=== PATIENT | male | born 1955 | race Caucasian/White ===

== ENCOUNTER 2017-02-16 20:36 | Emergency (ER) | payer BC ==
--- NOTE | 2017-02-16 22:42 | DIAGNOSTIC IMAGING REPORT ---
PROCEDURE: XR TIBIA AND FIBULA - LEFT INDICATION: TRAUMA/INJURY TECHNIQUE: AP and lateral views. COMPARISON: None. FINDINGS: Mild degenerative spurring at the tibial tuberosity. Osseous structures are otherwise normal. IMPRESSION: 1. Negative left tibia and fibula.
--- NOTE | 2017-02-16 22:43 | DIAGNOSTIC IMAGING REPORT ---
PROCEDURE: XR LUMBAR SPINE 2 OR 3 VIEWS INDICATION: TRAUMA/INJURY TECHNIQUE: Three views. COMPARISON: None. FINDINGS: Mild to moderate degenerative changes of the lower lumbar facet joints. Osseous structures and disc spaces are otherwise normal. No evidence of an acute process or fracture. IMPRESSION: 1. Mild to moderate degenerative changes. 2. Otherwise negative lumbar spine.
--- NOTE | 2017-02-16 22:44 | DIAGNOSTIC IMAGING REPORT ---
PROCEDURE: XR CERVICAL SPINE 2 OR 3 VIEW INDICATION: NECK TRAUMA/INJURY TECHNIQUE: Three views. COMPARISON: None. FINDINGS: Mild levoscoliosis with moderate to marked degenerative changes (multilevel disc space narrowing and moderate facet disease). No evidence of an acute process or fracture. IMPRESSION: 1. Mild levoscoliosis which may be a reflection of degenerative changes or cervical spasm. 2. Moderate to marked degenerative changes. 3. Otherwise negative cervical spine. No evidence of acute process or fracture
--- NOTE | 2017-02-16 23:10 | ED ORDER SUMMARY ---
..... Patient: MARGARITA ALVARES OrderSheet [facility] VisitID: [id number] [address] [place] [address] 61y, M Registration Date/Time: 02/16/2017 ORDER SHEET Weight: 90.7 kg (stated) Allergies: No Known Drug Allergy GENERAL ORDERS: Cervical Spine 2 or 3V Urgent (21:13 02/16/2017 HBivens A.R.N.P.) (Ack 21:16 CHagerty ER Locomotive Crane Engineer) (21:38 RFay) Lumbar Spine 2 or 3V Urgent (21:13 02/16/2017 HBivens A.R.N.P.) (Ack 21:16 CHagerty ER Locomotive Crane Engineer) (21:38 RFay) Tibia/Fibula Left Urgent (21:13 02/16/2017 HBivens A.R.N.P.) (Ack 21:16 CHagerty ER Locomotive Crane Engineer) (21:38 RFay) Dress Wounds (21:13 02/16/2017 HBivens A.R.N.P.) (Ack 21:24 MWinterer R.N.) (22:07 JQuivey R.N.) MEDICATION ORDERS: Toradol IM 60 mg (NOW) (21:13 02/16/2017 HBivens A.R.N.P.) (Ack 21:23 MWinterer R.N.) (21:46 MWinterer R.N.) Tramadol PO 50 mg (NOW) (23:18 02/16/2017 MWinterer R.N. verbal order read back to HBivens A.R.N.P.) (23:19 MWinterer R.N.) IV FLUIDS: ORDER SHEET NOTES: [Electronically signed by Darlin Zambrano R.N. (23:23 02/16/2017)] [Electronically signed by Myriam Mackay.R.N.P. (23:51 02/16/2017)] [Electronically locked/signed by Darlin Zambrano R.N. (23:23 02/16/2017)]
--- NOTE | 2017-02-16 23:10 | ED ORDER SUMMARY ---
..... Patient: MARGRAITA ALVARES OrderSheet [facility] VisitID: [id number] [address] [place] [address] 61y, M Registration Date/Time: 02/16/2017 ORDER SHEET Weight: 90.7 kg (stated) Allergies: No Known Drug Allergy GENERAL ORDERS: Cervical Spine 2 or 3V Urgent (21:13 02/16/2017 HBivens A.R.N.P.) (Ack 21:16 CHagerty ER Archives Specialist) (21:38 RFay) Lumbar Spine 2 or 3V Urgent (21:13 02/16/2017 HBivens A.R.N.P.) (Ack 21:16 CHagerty ER Archives Specialist) (21:38 RFay) Tibia/Fibula Left Urgent (21:13 02/16/2017 HBivens A.R.N.P.) (Ack 21:16 CHagerty ER Archives Specialist) (21:38 RFay) Dress Wounds (21:13 02/16/2017 HBivens A.R.N.P.) (Ack 21:24 MWinterer R.N.) (22:07 JQuivey R.N.) MEDICATION ORDERS: Toradol IM 60 mg (NOW) (21:13 02/16/2017 HBivens A.R.N.P.) (Ack 21:23 MWinterer R.N.) (21:46 MWinterer R.N.) Tramadol PO 50 mg (NOW) (23:18 02/16/2017 MWinterer R.N. verbal order read back to HBivens A.R.N.P.) (23:19 MWinterer R.N.) IV FLUIDS: ORDER SHEET NOTES: [Electronically signed by Darlin Zambrano R.N. (23:23 02/16/2017)] [Electronically signed by Myriam Mackay.R.N.P. (23:51 02/16/2017)] [Electronically locked/signed by Darlin Zamrbano R.N. (23:23 02/16/2017)]
--- NOTE | 2017-02-16 23:10 | ED CLINICAL REPORT ---
Clinical Report - Physicians/Mid Levels [facility] [address] [place] [address] 02/16/2017 20:37 [id number] Time Seen: 21:04; initial patient contact, initial documentation, patient care assumed. Arrived- By private vehicle. Historian- patient and spouse. HISTORY OF PRESENT ILLNESS Chief Complaint: FALL. Location of injuries- neck, lower back and left elbow and left leg. The injury occurred just prior to arrival. Fell 5-6 feet off a ladder and landed on a hard surface (ladder tipped over, and he landed on his L side onto metal grate). The patient complains of moderate pain. No blow to the head, loss of consciousness or seizure. The patient complains of neck pain. Not dazed. REVIEW OF SYSTEMS The patient complains of pain on weight bearing. No numbness, dizziness, loss of vision, chest pain or difficulty breathing. No weakness, abdominal pain or laceration. All systems otherwise negative, except as recorded above. PAST HISTORY See nurses notes. PROBLEMS: Psoriatic arthritis. Hypercholesterolemia. Arthritis. --20:56 Dralin Zambrano R.N. ADDITIONAL SURGERIES: Hemorrhoidectomy. Left hand surgery . --20:56 Darlin Zambrano R.N. SOCIAL HISTORY Never smoker. Occasional alcohol use. No drug use. No recent travel. Is a local resident. He lives with spouse. ADDITIONAL NOTES The nursing notes have been reviewed with agreement regarding the chief complaint, HPI, ROS, PMH and patient medications and allergies. PHYSICAL EXAM Vital Signs: 02/16/2017 20:52 BP: 116/77. HR: 82. RR: 20. O2 saturation: 97%. Pain level now: 02/16. Have been reviewed as normal and appear to be correct. Appearance: Alert. Oriented X3. No acute distress. Head: Head non-tender. No swelling of head. Eyes: Pupils equal, round and reactive to light. EOM intact. ENT: No dental injury. Pharynx normal. Neck: Painful ROM in the neck. Pain in the neck upon movement. No decreased ROM or muscle spasm in the neck. Tenderness present. Mild vertebral tenderness of the mid cervical spine. CVS: Heart sounds normal. Pulses normal. Respiratory: Breath sounds normal. Chest nontender. Abdomen: No visible injury. Soft and nontender. Back: Back tenderness present. Vertebral point tenderness over the lower lumbar spine. Abnormal ROM. Limited ROM in the back- in the lumbar spine: decreased flexion, right lateral bending, left lateral bending and rotation to the right and left. No muscle spasm. Skin: Skin intact. Skin warm and dry. Normal skin color. Normal skin turgor. Extremities: Abnormal inspection. Extremities not atraumatic. Right elbow: small abrasion located in the area of the posterior elbow. Neurovascular intact distally. No erythema, tenderness, swelling, laceration or ecchymosis. No puncture wound, foreign body or deformity. No joint effusion or limitation in ROM. Pelvis stable. Left leg: mild tenderness and multiple small abrasions located in the anterior and posterior aspect of mid leg. Limited weight bearing secondary to pain. Neurovascular intact distally. (x2 abrasions, each about dime size, tender over calf). No erythema, swelling, laceration, ecchymosis or puncture wound. No foreign body or deformity. No lower extremity edema. Neuro: Oriented X 3. No motor deficit. No sensory deficit. LABS, X-RAYS, AND EKG X-Rays: X-rays are normal and reveal no acute disease (reviewed by Dr Wesley). C-spine series negative. LS spine series negative. Left tib/fib negative. The X-rays were independently viewed by me. PROGRESS AND PROCEDURES Patient and spouse counseled in person regarding the patient's stable condition, test results and diagnosis. 2300. Differential Diagnosis: Other possible considerations: fall, head injury, internal injury, fx, sprains, lacs, abrasions, contusions. Above considerations are based on history, physical exam, reassessment and X-Ray data. Differential diagnosis was discussed with patient and patient's spouse. Disposition: Discharged home in good and improved condition (23:10). Condition: good and stable. CLINICAL IMPRESSION Fall from ladder. Multiple superficial abrasions to the right elbow and left lower leg.Treatment of abrasion not delayed. No infection or abrasion with foreign body present. Acute cervical strain. Muscle strain of the low back. INSTRUCTIONS Apply ice for 20 minutes four times a day for one days until better. Don't apply ice directly to skin. Protect wound and keep wound area clean. Soak in warm soapy water twice daily. Apply neosporin twice daily. Warnings: HEAD INJURY PRECAUTIONS: An observer must check on the patient frequently for the next 24 hours to confirm that the patient responds as expected, is not confused, has no new weakness or numbness, and has no other problems. GENERAL WARNINGS: Return or contact your physician immediately if your condition worsens or changes unexpectedly, if not improving as expected, or if other problems arise. SPECIFICALLY, return if you develop incontinence of urine (loss of bladder control). trouble breathing, chest pain, abdominal pain. Prescription Medications: Ultram 50 mg tablets: take 1-2 orally every 6 hours as needed for pain. Dispense twenty (20). No refills. Substitution is permissible. Follow-up: Follow up with your doctor in about three days even if well. Call for an appointment. Summary of care provided to patient. Understanding of the discharge instructions verbalized by patient. (Electronically signed by Myriam Mackay A.R.N.P. 02/16/2017 23:51)
--- NOTE | 2017-02-16 23:10 | ED NURSING NOTES ---
Clinical Report - Nurses [place] [address] [place] [address] 02/16/2017 20:37 Patient: MARGARITA ALVARES TRIAGE Acuity: LEVEL 3. Chief Complaint: FALL 5-6 FEET OFF A LADDER. Alert. No acute distress. IDA COMA SCORE: Ida Coma Scale: 15- eyes open spontaneously (4); best verbal response- oriented x 4 (5); best motor response- obeys commands (6). --20:59 Darlin Zambrano R.N. 20:52 02/16/17. BP: 116/77. HR: 82. RR: 20. O2 saturation: 97%. Pain level now: 02/16. --20:59 Darlin Zambrano R.N. Weight: 90.7 kg stated. Height/Length: 70 inches Per Patient. BMI: 28.7. --20:57 Darlin Zambrano R.N. Medications Simvastatin Oral 40 mg, daily. --20:55 Darlin Zambrano R.N. Embrel inject weekly . --20:55 Darlin Zambrano R.N. Allergies No Known Drug Allergy. --20:55 Darlin Zambrano R.N. History Arrived by private vehicle. Historian: patient. Accompanied by spouse. Primary physician (Jordy). Location of injuries: neck, lower back, left flank, left elbow and left leg. This occurred just prior to arrival. ( Pt reports he fell approx 6 feet from a ladder. He states he "rode the ladder down."). No loss of consciousness. No alteration in mental status. SOCIAL HX: Never smoker. Occasional alcohol use. No drug use. FALL RISK ASSESSMENT: Fall risk assessment completed. No fall risk identified. NUTRITIONAL RISK ASSESSMENT: The nutritional risk assessment revealed no deficiencies. FUNCTIONAL ASSESSMENT: Functional assessment: no impairments noted. LEARNING NEEDS ASSESSMENT: The learning needs assessment revealed no barriers. SKIN INTEGRITY ASSESSMENT: Skin integrity risk assessment completed. No skin integrity risk identified. --20:59 Darlin Zambrano R.N. PROBLEMS: Psoriatic arthritis. Hypercholesterolemia. Arthritis. --20:56 Darlin Zambrano R.N. ADDITIONAL SURGERIES: Hemorrhoidectomy. Left hand surgery . --20:56 Darlin Zambrano R.N. Assessment GENERAL / NEURO / PSYCH: Alert. Oriented X 4. Appears in no acute distress. Patient appears calm and cooperative. RESPIRATORY: Respirations not labored. CVS: Capillary refill less than 2 seconds. GI / : Abdomen soft and nontender. SKIN: Mucous membranes are pink. Skin is warm and dry. --20:59 Darlin Zambrano R.N. Interventions ID band on patient. To treatment room. --20:59 Darlin Zambrano R.N. NURSING PROGRESS NOTES Patient gowned. Two patient identifiers checked. Call light placed in reach. Side rails up x 1. Bed placed in lowest position. Brakes of bed on. Patient ready for evaluation- chart flagged and ED physician and LATIN AMERICAN STUDIES PROFESSOR notified. --21:00 Darlin Zambrano R.N. 21:46 02/16/2017 Toradol (Ketorolac Tromethamine) IM 60 mg given. Given in the left gluteus viri. Allergies verified and confirmed 5 rights. --21:46 Darlin Zambrano R.N. Wound cleansed. Applied clean dressing consisting of Band-Aid, following the application of antibiotic ointment (bacitracin). --21:57 Arturo Harman, Tech1 23:08 02/16/17. Care transferred and report received (from YASIR Saeed). --23:08 Juli Johnston R.N. 23:14 02/16/2017 Tramadol (TraMADol HCl) PO 50 mg given. Allergies verified, confirmed 5 rights and sedative warning given to the patient. --23:19 Darlin Zambrano R.N. DISPOSITION / DISCHARGE Departure time: 23:15 Feb 16 2017. Condition at departure: improved and stable. No learning barriers present. Discharge instructions provided and reviewed with the patient. Reviewed medication(s) side effects, precautions and dosing information. Prescription(s) given to the patient. Patient verbalized understanding. Written instructions provided in Maldivian. The patient was discharged by the nurse practitioner. He was discharged home and accompanied by spouse. He left the Emergency Department ambulatory and via private vehicle. Spouse driving. --23:23 Darlin Zambrano R.N. 23:19 02/16/17. BP: 120/72. HR: 78. RR: 18. O2 saturation: 100% on room air. Pain level now: 01/16. --23:23 Darlin Zambrano R.N. Locked/Released at 02/16/2017 23:23 by Darlin Zambrano R.N.
--- NOTE | 2017-02-16 23:10 | ED NURSING NOTES ---
Clinical Report - Nurses [place] [address] [place] [address] 02/16/2017 20:37 Patient: MARGARITA ALVARES TRIAGE Acuity: LEVEL 3. Chief Complaint: FALL 5-6 FEET OFF A LADDER. Alert. No acute distress. IDA COMA SCORE: Ida Coma Scale: 15- eyes open spontaneously (4); best verbal response- oriented x 4 (5); best motor response- obeys commands (6). --20:59 Darlin Zambrano R.N. 20:52 02/16/17. BP: 116/77. HR: 82. RR: 20. O2 saturation: 97%. Pain level now: 02/16. --20:59 Darlin Zambrano R.N. Weight: 90.7 kg stated. Height/Length: 70 inches Per Patient. BMI: 28.7. --20:57 Darlin Zambrano R.N. Medications Simvastatin Oral 40 mg, daily. --20:55 Darlin Zambrano R.N. Embrel inject weekly . --20:55 Darlin Zambrano R.N. Allergies No Known Drug Allergy. --20:55 Darlin Zambrano R.N. History Arrived by private vehicle. Historian: patient. Accompanied by spouse. Primary physician (Jordy). Location of injuries: neck, lower back, left flank, left elbow and left leg. This occurred just prior to arrival. ( Pt reports he fell approx 6 feet from a ladder. He states he "rode the ladder down."). No loss of consciousness. No alteration in mental status. SOCIAL HX: Never smoker. Occasional alcohol use. No drug use. FALL RISK ASSESSMENT: Fall risk assessment completed. No fall risk identified. NUTRITIONAL RISK ASSESSMENT: The nutritional risk assessment revealed no deficiencies. FUNCTIONAL ASSESSMENT: Functional assessment: no impairments noted. LEARNING NEEDS ASSESSMENT: The learning needs assessment revealed no barriers. SKIN INTEGRITY ASSESSMENT: Skin integrity risk assessment completed. No skin integrity risk identified. --20:59 Darlin Zambrano R.N. PROBLEMS: Psoriatic arthritis. Hypercholesterolemia. Arthritis. --20:56 Darlin Zambrano R.N. ADDITIONAL SURGERIES: Hemorrhoidectomy. Left hand surgery . --20:56 Darlin Zambrano R.N. Assessment GENERAL / NEURO / PSYCH: Alert. Oriented X 4. Appears in no acute distress. Patient appears calm and cooperative. RESPIRATORY: Respirations not labored. CVS: Capillary refill less than 2 seconds. GI / : Abdomen soft and nontender. SKIN: Mucous membranes are pink. Skin is warm and dry. --20:59 Darlin Zambrano R.N. Interventions ID band on patient. To treatment room. --20:59 Darlin Zambrano R.N. NURSING PROGRESS NOTES Patient gowned. Two patient identifiers checked. Call light placed in reach. Side rails up x 1. Bed placed in lowest position. Brakes of bed on. Patient ready for evaluation- chart flagged and ED physician and CORPORATE EVENTS DIRECTOR notified. --21:00 Darlin Zambrano R.N. 21:46 02/16/2017 Toradol (Ketorolac Tromethamine) IM 60 mg given. Given in the left gluteus viri. Allergies verified and confirmed 5 rights. --21:46 Darlin Zambrano R.N. Wound cleansed. Applied clean dressing consisting of Band-Aid, following the application of antibiotic ointment (bacitracin). --21:57 Arturo Harman, Tech1 23:08 02/16/17. Care transferred and report received (from YASIR Saeed). --23:08 Juli Johnston R.N. 23:14 02/16/2017 Tramadol (TraMADol HCl) PO 50 mg given. Allergies verified, confirmed 5 rights and sedative warning given to the patient. --23:19 Darlin Zambrano R.N. DISPOSITION / DISCHARGE Departure time: 23:15 Feb 16 2017. Condition at departure: improved and stable. No learning barriers present. Discharge instructions provided and reviewed with the patient. Reviewed medication(s) side effects, precautions and dosing information. Prescription(s) given to the patient. Patient verbalized understanding. Written instructions provided in Emirati. The patient was discharged by the nurse practitioner. He was discharged home and accompanied by spouse. He left the Emergency Department ambulatory and via private vehicle. Spouse driving. --23:23 Darlin Zambrano R.N. 23:19 02/16/17. BP: 120/72. HR: 78. RR: 18. O2 saturation: 100% on room air. Pain level now: 01/16. --23:23 Darlin Zambrano R.N. Locked/Released at 02/16/2017 23:23 by Darlin Zambrano R.N.
--- NOTE | 2017-02-16 23:52 | ED MAR SUMMARY ---
..... Medication Administration Record [facility] [address] [place] [address] Patient: MARGARITA ALVARES Visit ID: [id number] 61y, M Weight: 90.7 kg Height/Length: 70 in BMI: 28.7 ALLERGIES: No Known Drug Allergy Given 21:46 02/16/2017 Darlin Zambrano, R.N. Medication Administered: TORADOL [IM] (KETOROLAC TROMETHAMINE), Dose: 60 mg IM. Medication Ordered: Toradol IM 60 mg (NOW). Given 23:14 02/16/2017 Darlin Zambrano, R.N. Medication Administered: TRAMADOL [PO] (TRAMADOL HCL), Dose: 50 mg PO. Medication Ordered: Tramadol PO 50 mg (NOW).
--- NOTE | 2017-02-16 23:52 | ED MED RECONCILIATION SUMMARY ---
Patient: MARGARITA ALVARES Medication Reconciliation Report [facility] VisitID: [id number] [address] [place] [address] 61y, M Registration Date/Time: 02/16/2017 Weight: 90.7 kg Height/Length: 70 in. BMI: 28.7 ALLERGIES: No Known Drug Allergy The patient's Home Medications are listed below: THE FOLLOWING MEDICATIONS NEED TO BE RECONCILED: Embrel inject weekly Simvastatin Oral 40 mg, daily The source(s) of the original Home Medication information: Not obtained. The following Medications were given to the patient in the Emergency Department: Toradol [IM] IM 60 mg, administered: 02/16/2017 9:46:00 PM Tramadol [PO] PO 50 mg, administered: 02/16/2017 11:14:00 PM The following Medications were prescribed to the patient: Ultram 50 mg tablets: take 1-2 orally every 6 hours as needed for pain. Dispense twenty (20). No refills. Substitution is permissible. -- Myriam Mackay A.R.N.P.
--- NOTE | 2017-02-16 23:52 | ED MED RECONCILIATION SUMMARY ---
Patient: MARGARITA ALVARES Medication Reconciliation Report [facility] VisitID: [id number] [address] [place] [address] 61y, M Registration Date/Time: 02/16/2017 Weight: 90.7 kg Height/Length: 70 in. BMI: 28.7 ALLERGIES: No Known Drug Allergy The patient's Home Medications are listed below: THE FOLLOWING MEDICATIONS NEED TO BE RECONCILED: Embrel inject weekly Simvastatin Oral 40 mg, daily The source(s) of the original Home Medication information: Not obtained. The following Medications were given to the patient in the Emergency Department: Toradol [IM] IM 60 mg, administered: 02/16/2017 9:46:00 PM Tramadol [PO] PO 50 mg, administered: 02/16/2017 11:14:00 PM The following Medications were prescribed to the patient: Ultram 50 mg tablets: take 1-2 orally every 6 hours as needed for pain. Dispense twenty (20). No refills. Substitution is permissible. -- Myriam Mackay A.R.N.P.
--- NOTE | 2017-02-16 23:52 | ED MAR SUMMARY ---
..... Medication Administration Record [facility] [address] [place] [address] Patient: MARGARITA ALVARES Visit ID: [id number] 61y, M Weight: 90.7 kg Height/Length: 70 in BMI: 28.7 ALLERGIES: No Known Drug Allergy Given 21:46 02/16/2017 Darlin Zambrano, R.N. Medication Administered: TORADOL [IM] (KETOROLAC TROMETHAMINE), Dose: 60 mg IM. Medication Ordered: Toradol IM 60 mg (NOW). Given 23:14 02/16/2017 Darlin Zambrano, R.N. Medication Administered: TRAMADOL [PO] (TRAMADOL HCL), Dose: 50 mg PO. Medication Ordered: Tramadol PO 50 mg (NOW).
--- NOTE | 2017-02-16 23:52 | ED DISCHARGE INSTRUCTIONS ---
Patient: MARGARITA ALVARES General Instructions [facility] VisitID: [id number] [address] [place] [address] 61y, M Registration Date/Time: 02/16/2017 Fall from ladder. Multiple superficial abrasions to the right elbow and left lower leg.Treatment of abrasion not delayed. No infection or abrasion with foreign body present. Acute cervical strain. Muscle strain of the low back. INSTRUCTIONS Apply ice for 20 minutes four times a day for one days until better. Don't apply ice directly to skin. Protect wound and keep wound area clean. Soak in warm soapy water twice daily. Apply neosporin twice daily. Warnings: HEAD INJURY PRECAUTIONS: An observer must check on the patient frequently for the next 24 hours to confirm that the patient responds as expected, is not confused, has no new weakness or numbness, and has no other problems. GENERAL WARNINGS: Return or contact your physician immediately if your condition worsens or changes unexpectedly, if not improving as expected, or if other problems arise. SPECIFICALLY, return if you develop incontinence of urine (loss of bladder control). trouble breathing, chest pain, abdominal pain. Prescription Medications: Ultram 50 mg tablets: take 1-2 orally every 6 hours as needed for pain. Dispense twenty (20). No refills. Substitution is permissible. Follow-up: Follow up with your doctor in about three days even if well. Call for an appointment. Summary of care provided to patient. Understanding of the discharge instructions verbalized by patient. ADDITIONAL INFORMATION Mechanical Fall You have had a fall today. It appears that the cause is mechanical. That means that you slipped, tripped or lost your balance. If your fall had been due to fainting or a seizure, further tests would be required. Home Care: Rest today and resume your normal activities when you are feeling back to normal. If you were injured during the fall, follow the advice from your doctor regarding care of your injury. You may use acetaminophen (Tylenol) or ibuprofen (Motrin, Advil) to control pain, unless another pain medicine was prescribed. [NOTE: If you have chronic liver or kidney disease or ever had a stomach ulcer or GI bleeding, talk with your doctor before using these medicines.] Fall Prevention: Was there anything that caused your fall that can be fixed, removed, or replaced? Make your home safe by keeping walkways clear of objects you may trip over. Use non-slip pads under rugs. Do not walk in poorly lit areas. Do not stand on chairs or wobbly ladders. Use caution when reaching overhead or looking upward. This position can cause a loss of balance. Be sure your shoes fit properly, have non-slip bottoms and are in good condition. Be cautious when going up and down curbs, and walking on uneven sidewalks. If your balance is poor, consider using a cane or walker. Stay as active as you can. Balance, flexibility, strength, and endurance all come from exercise. They all play a role in preventing falls. Follow Up with your doctor or as advised by our staff. Get Prompt Medical Attention if any of the following occur: Repeated mechanical falls, or unexplained falls Dizziness, fainting or seizure Severe headache Chest pain or shortness of breath Palpitations (very rapid or very slow or irregular heartbeat) Blood in vomit, stools (black or red color) Weakness of an arm or leg or one side of the face Difficulty with speech or vision Abrasions Abrasions are skin scrapes. Their treatment depends on how large and deep the abrasion is. Home Care: If you were given a bandage, change it once a day. If your bandage sticks to the wound, soak it in warm water until it loosens. Wash the area with soap and water to remove all the cream/ointment. You may do this in a sink, under a tub faucet or shower. Rinse off the soap and pat dry with a clean towel. Reapply cream/ointment according to your doctor's instructions. This will prevent infection and help prevent the bandage from sticking. Cover the wound with a fresh non-stick bandage (Telfa). Repeat steps 1 to 4 daily, or as directed by your doctor. If the bandage becomes wet or dirty, change it as soon as possible. You may use acetaminophen (Tylenol) or ibuprofen (Motrin, Advil) to control pain, unless another pain medicine was prescribed. [ NOTE : If you have chronic liver or kidney disease or ever had a stomach ulcer or GI bleeding, talk with your doctor before using these medicines.] Do not use ibuprofen in children under six months of age. Follow Up with your physician or this facility as directed by our staff. Most skin wounds heal within ten days. However, an infection may occur despite proper treatment. Therefore, look for the early signs of infection listed below. Get Prompt Medical Attention if any of the following occur: Increasing pain in the wound Increasing redness or swelling Pus coming from the wound Fever of 100.4F (38C) or higher, or as directed by your healthcare provider Neck Sprain Or Strain A sudden force that causes turning or bending of the neck (such as in a car accident) can stretch or tear muscles (strain) and ligaments (sprain) and cause neck pain. Sometimes neck pain occurs after a simple awkward movement. In either case, muscle spasm is commonly present and contributes to the pain. Unless you had a forceful physical injury (for example, a car accident or fall), X-rays are usually not ordered for the initial evaluation of neck pain. If pain continues and dose not respond to medical treatment, X-rays and other tests may be performed at a later time. Home care The following guidelines will help you care for your injury at home: You may feel more soreness and spasm the first few days after the injury. Reduce your activity level until symptoms begin to improve. When lying down, use a comfortable pillow that supports the head and keeps the spine in a neutral position. The position of the head should not be tilted forward or backward. Use ice packs (ice in a plastic bag, wrapped in a towel) to treat acute pain. Apply for 20 minutes every 24 hours during the first two days. Then, begin local heat (hot shower, hot bath or heating pad) andmassageto reduce muscle spasm. Some patients feel best alternating hot and cold treatments, or just staying with one method only. Do what feels the best to you and gives the most relief. You may use acetaminophen or ibuprofen to control pain, unless another pain medicine was prescribed.If you have chronic liver or kidney disease or ever had a stomach ulcer or GI bleeding, talk with your doctor before using these medicines. Follow-up care Follow up with your physician or this facility if your symptoms do not show signs of improvement. Physical therapy may be needed. If you had X-rays today, they didnt show any broken bones, breaks, or fractures. Sometimes fractures dont show up on the first X-ray. Bruises and sprains can sometimes hurt as much as a fracture. These injuries can take time to heal completely. If your symptoms dont improve or they get worse, talk with your doctor. You may need a repeat X-ray. When to seek medical care Get prompt medical attention if any of the following occur: Pain becomes worse or spreads into your arms Weakness or numbness in one or both arms Neck Pain [No Trauma] There are several possible causes of neck pain without injury: You can get a minor ligament sprain or muscle strain from a sudden minor neck movement. Sleeping with your neck in an awkward position can also cause this. Some persons respond to emotional stress by tensing the muscles of their neck, shoulders and upper back. Chronic spasm in these muscles can cause neck pain and sometimes headaches. Gradualwear and tearof the joints in the spine can cause degenerative arthritis.This can be a source of occasional or chronic neck pain. With aging or repeated small injuries to the neck, the spinal disks (the cushions between each spinal bone) may bulge and put pressure on a nearby spinal nerve. This causes tingling, pain or numbness spreading from the neck to the shoulder, arm or hand on one side. Acute neck pain usually gets better in one to two weeks. Neck pain related to disk disease, arthritis in the spinal joints or spinal stenosis (narrowing of the spinal canal) can become chronic and last for months or years. Unless you had a forceful physical injury (for example, a car accident or fall), X-rays are usually not ordered for the initial evaluation of neck pain. If pain continues and does not respond to medical treatment, x-rays and other tests may be performed at a later time. Home Care: Rest and relax the muscles. Use a comfortable pillow that supports the head and keeps the spine in a neutral position. The position of the head should not be tilted forward or backward. A rolled up towel may help for a custom fit. Some persons find relief with heat (hot shower, hot bath or heating pad) and massage, while others prefer cold packs (crushed or cubed ice in a plastic bag, wrapped in a towel) . Try both and use the method that feels best for 20 minutes several times a day. You may use acetaminophen (Tylenol) or ibuprofen (Motrin, Advil) to control pain, unless another medicine was prescribed. [ NOTE : If you have chronic liver or kidney disease or ever had a stomach ulcer or GI bleeding, talk with your doctor before using these medicines.] Follow Up with your physician or this facility if your symptoms do not show signs of improvement after one week. Physical therapy or further tests may be needed. [NOTE: A radiologist will review any X-rays or CT scans that were taken. We will notify you of any new findings that may affect your care.] Get Prompt Medical Attention if any of the following occur: Pain becomes worse or spreads into one or both arms Weakness or numbness in one or both arms Increasing headache Neck swelling, difficulty or painful swallowing Fever of 100.4F (38C) or higher, or as directed by your healthcare provider Back Pain [Acute Or Chronic] Back pain is usually caused by an injury to the muscles or ligaments of the spine. Sometimes the disks that separate each bone in the spine may bulge and cause pain by pressing on a nearby nerve. Back pain may also appear after a sudden twisting/bending force (such as in a car accident), after a simple awkward movement, or lifting something heavy with poor body positioning. In either case, muscle spasm is often present and adds to the pain. Acute back pain usually gets better in one to two weeks. Back pain related to disk disease, arthritis in the spinal joints or spinal stenosis (narrowing of the spinal canal) can become chronic and last for months or years. Unless you had a physical injury (for example, a car accident or fall) X-rays are usually not ordered for the initial evaluation of back pain. If pain continues and does not respond to medical treatment, x-rays and other tests may be performed at a later time. Home Care: You may need to stay in bed the first few days. But, as soon as possible, begin sitting or walking to avoid problems with prolonged bed rest (muscle weakness, worsening back stiffness and pain, blood clots in the legs). When in bed, try to find a position of comfort. A firm mattress is best. Try lying flat on your back with pillows under your knees. You can also try lying on your side with your knees bent up towards your chest and a pillow between your knees. Avoid prolonged sitting. This puts more stress on the lower back than standing or walking. During the first two days after injury, apply an ICE PACK to the painful area for 20 minutes every 2-4 hours. This will reduce swelling and pain. HEAT (hot shower, hot bath or heating pad) works well for muscle spasm. You can start with ice, then switch to heat after two days. Some patients feel best alternating ice and heat treatments. Use the one method that feels the best to you. You may use acetaminophen (Tylenol) or ibuprofen (Motrin, Advil) to control pain, unless another pain medicine was prescribed. [NOTE: If you have chronic liver or kidney disease or ever had a stomach ulcer or GI bleeding, talk with your doctor before using these medicines.] Be aware of safe lifting methods and do not lift anything over 15 pounds until all the pain is gone. Follow Up with your doctor or this facility if your symptoms do not start to improve after one week. Physical therapy may be needed. [NOTE: If X-rays were taken, they will be reviewed by a radiologist. You will be notified of any new findings that may affect your care.] Get Prompt Medical Attention if any of the following occur: Pain becomes worse or spreads to your legs Weakness or numbness in one or both legs Loss of bowel or bladder control Numbness in the groin or genital area Head Injury, No Wake-Up (Adult) You have had a head injury. It does not appear serious at this time. Symptoms of a more serious problem (concussion, bruising, or bleeding in the brain) may appear later. Therefore, watch for the WARNING SIGNS listed below. Home Care: Your healthcare provider will tell you whether its okay to drive. If so, you can drive yourself home. For the next day or so, be careful when driving or using heavy machinery until you are sure you have no delayed symptoms. During the next 24 hours someone must stay with you to check for the signs below. It is not necessary to stay awake or be awakened during the night. If you have swelling of the face or scalp, apply an ice pack (ice cubes in a plastic bag, wrapped in a towel) for 20 minutes. Do this every 1-2 hours until the swelling starts to go down. Do not use aspirin or ibuprofen (Motrin, Advil) after a head injury.You may use acetaminophen (Tylenol)to control pain, unless another pain medicine was prescribed. [NOTE: If you have chronic liver or kidney disease or ever had a stomach ulcer or GI bleeding, talk with your doctor before using these medicines.] For the next 24 hours: Do not take alcohol, sedatives or medicines that make you sleepy. Avoid strenuous activities. No lifting or straining. If you have had any symptoms of a concussion today (nausea, vomiting, dizziness, confusion, headache, memory loss or if you were knocked out), do not return to sports or any activity that could result in another head injury until all symptoms are gone and you have been cleared by your doctor. A second head injury before fully recovering from the first one can lead to serious brain injury. Follow Up with your doctor if symptoms are not improving after 24 hours, or as directed. [NOTE: A radiologist will review any X-rays or CT scans that were taken. We will notify you of any new findings that may affect your care.] Get Prompt Medical Attention if any of the followingWARNING SIGNS occur: Repeated vomiting Severe or worsening headache or dizziness Unusual drowsiness, or unable to awaken as usual Confusion or change in behavior or speech, memory loss, blurred vision Convulsion (seizure) Increasing scalp or face swelling Redness, warmth or pus from the swollen area Fluid drainage or bleeding from the nose or ears Tramadol Hydrochloride Oral tablet What is this medicine? TRAMADOL (TRA ma dole) is a pain reliever. It is used to treat moderate to severe pain in adults. How should I use this medicine? Take this medicine by mouth with a full glass of water. Follow the directions on the prescription label. If the medicine upsets your stomach, take it with food or milk. Do not take more medicine than you are told to take. Talk to your eyeglass lens cutter regarding the use of this medicine in children. Special care may be needed. What side effects may I notice from receiving this medicine? Side effects that you should report to your doctor or health care administrative tech as soon as possible: allergic reactions like skin rash, itching or hives, swelling of the face, lips, or tongue breathing difficulties, wheezing confusion itching light headedness or fainting spells redness, blistering, peeling or loosening of the skin, including inside the mouth seizures Side effects that usually do not require medical attention (report to your doctor or health care administrative tech if they continue or are bothersome): constipation dizziness drowsiness headache nausea, vomiting What may interact with this medicine? Do not take this medicine with any of the following medications: MAOIs like Carbex, Eldepryl, Marplan, Nardil, and Parnate This medicine may also interact with the following medications: alcohol or medicines that contain alcohol antihistamines benzodiazepines bupropion carbamazepine or oxcarbazepine clozapine cyclobenzaprine digoxin furazolidone linezolid medicines for depression, anxiety, or psychotic disturbances medicines for migraine headache like almotriptan, eletriptan, frovatriptan, naratriptan, rizatriptan, sumatriptan, zolmitriptan medicines for pain like pentazocine, buprenorphine, butorphanol, meperidine, nalbuphine, and propoxyphene medicines for sleep muscle relaxants naltrexone phenobarbital phenothiazines like perphenazine, thioridazine, chlorpromazine, mesoridazine, fluphenazine, prochlorperazine, promazine, and trifluoperazine procarbazine warfarin What if I miss a dose? If you miss a dose, take it as soon as you can. If it is almost time for your next dose, take only that dose. Do not take double or extra doses. Where should I keep my medicine? Keep out of the reach of children. Store at room temperature between 15 and 30 degrees C (59 and 86 degrees F). Keep container tightly closed. Throw away any unused medicine after the expiration date. What should I tell my health care provider before I take this medicine? They need to know if you have any of these conditions: brain tumor depression drug abuse or addiction head injury if you frequently drink alcohol containing drinks kidney disease or trouble passing urine liver disease lung disease, asthma, or breathing problems seizures or epilepsy suicidal thoughts, plans, or attempt; a previous suicide attempt by you or a family member an unusual or allergic reaction to tramadol, codeine, other medicines, foods, dyes, or preservatives or trying to get breast-feeding What should I watch for while using this medicine? Tell your doctor or health care administrative tech if your pain does not go away, if it gets worse, or if you have new or a different type of pain. You may develop tolerance to the medicine. Tolerance means that you will need a higher dose of the medicine for pain relief. Tolerance is normal and is expected if you take this medicine for a long time. Do not suddenly stop taking your medicine because you may develop a severe reaction. Your body becomes used to the medicine. This does NOT mean you are addicted. Addiction is a behavior related to getting and using a drug for a non-medical reason. If you have pain, you have a medical reason to take pain medicine. Your doctor will tell you how much medicine to take. If your doctor wants you to stop the medicine, the dose will be slowly lowered over time to avoid any side effects. You may get drowsy or dizzy. Do not drive, use machinery, or do anything that needs mental alertness until you know how this medicine affects you. Do not stand or sit up quickly, especially if you are an older patient. This reduces the risk of dizzy or fainting spells. Alcohol can increase or decrease the effects of this medicine. Avoid alcoholic drinks. You may have constipation. Try to have a bowel movement at least every 2 to 3 days. If you do not have a bowel movement for 3 days, call your doctor or health care administrative tech. Your mouth may get dry. Chewing sugarless gum or sucking hard candy, and drinking plenty of water may help. Contact your doctor if the problem does not go away or is severe. You have been given the following additional information: Fall, Mechanical Abrasion Neck Sprain/Strain Neck Pain, No Trauma Back Pain (Acute Or Chronic) HEAD INJURY, No Wake-Up (Adult) Tramadol Hydrochloride Oral tablet (Electronically signed by Myriam Mackay A.R.N.P. 02/16/2017 23:51)
== END 2017-02-16 23:15 | disposition home or self-care (01) ==
LOC: ED SRH 20:36
DX: S16.1XXA Strain of muscle, fascia and tendon at neck level, initial encounter (principal); S39.012A Strain of muscle, fascia and tendon of lower back, initial encounter; S80.812A Abrasion, left lower leg, initial encounter; S50.311A Abrasion of right elbow, initial encounter; W11.XXXA Fall on and from ladder, initial encounter; Y93.9 Activity, unspecified; Y99.9 Unspecified external cause status; Y92.9 Unspecified place or not applicable; E78.00 Pure hypercholesterolemia, unspecified